=== PATIENT | male | born 1960 | race Caucasian/White ===

== ENCOUNTER 2020-04-03 16:34 | Emergency (ER) | payer OTHER, SELFPAY ==
[2020-04-03 16:47] VITALS: BP 163/90; PULSE 77; RESP 17; TEMP 36.9; O2SAT 98
[2020-04-03 17:19] LABS: Add Manual Diff / Slide Review NO; Basophils Absolute Auto 0 /uL (0-100); Basophils Percent Auto 0.5 % (0-2); Eosinophils Absolute Auto 200 /uL (0-450); Hematocrit 41.9 % (41-53); Hemoglobin 14.4 g/dL (13.5-17.5); Lymphocytes Absolute Auto 2900 /uL (1100-4500); Mean Corpuscular HGB Conc 34.2 % (30-36); Mean Corpuscular Hemoglobin 31.8 PG (26-34); Monocytes Absolute Auto 700 /uL (0-900); Monocytes Percent Auto 8.4 % (3-14); Neutrophils Absolute Auto 4400 /uL (1500-7000); Neutrophils Percent Auto 54.1 % (50-75); Platelet Count 253 X10^3/uL (150-400); Red Blood Cell Count 4.51 X10^6/uL (4.5-5.9); Red Cell Distribution Width 13.6 % (11.6-14.8); White Blood Cell Count 8.2 X10^3/uL (4.5-11.0)
[2020-04-03 17:30] LABS: Prothrombin Time 11.8 SECONDS (10.1-12.7)
[2020-04-03 17:33] LABS: PTT Partial Thromboplastin Tim 32 SECONDS (26.4-36.2)
[2020-04-03 17:35] LABS: Alanine Aminotransferase 24 IU/L (<50); Albumin 4.5 g/dL (3.5-5.0); Albumin Globulin Ratio 1.7 (1.0-2.8); Alkaline Phosphatase 41 U/L (38-126); Aspartate Aminotransferase 25 IU/L (17-59); Bilirubin Total 0.5 mg/dL (0.2-1.3); Blood Urea Nitrogen 17 mg/dL (9-20); Calcium 9.5 mg/dL (8.4-10.2); Carbon Dioxide 27 mmol/L (22-32); Chloride 107 mmol/L (98-107); Estimated Glomerular Filt Rate > 60.0 mL/min (>60); Globulin 2.7 g/dL (1.7-4.1); Glucose 112 mg/dL (70-100); HEMOLYSIS 50 (0-50); Lipase 193 U/L (23-300); Sodium 139 mmol/L (137-145); Total Protein 7.2 g/dL (6.3-8.2)
[2020-04-03] MEDS: MORPHINE 4 MG/ML INJ IV (18:24)
[2020-04-03 18:30] VITALS: BP 159/90; PULSE 68; RESP 17; O2SAT 97
--- NOTE | 2020-04-03 19:12 | ED.ABDPAIN ---
HPI - Abdominal Pain <ANNELISE Villalpando - Last Filed: 04/03/20 19:40> General Chief Complaint: Abdominal Pain Stated Complaint: states has a hernia and sent by his Dr. Time Seen by Provider: 04/03/20 17:01 Source: patient Mode of arrival: Ambulatory Limitations: no limitations History of Present Illness HPI narrative: The patient is a 59-year-old male nonsmoker with history of insomnia who presents with a chief complaint of an umbilical hernia. He was seen at the clinic today, for his hernia. He states his been out for several days and is very hard and painful. He states that this has been going on for years, but has never been this bad. He denies any fevers nausea vomiting or diarrhea. He denies any abdominal pain other than his hernia at this point time. He states that Dr Gil attempted to reduce his hernia, and was unable to. Last bowel movement was yesterday was soft. Related Data Home Medications Medication Instructions Recorded Confirmed loratadine [Claritin] 10 mg PO DAILY 04/03/20 04/03/20 Previous Rx's Medication Instructions Recorded Viagra 100 mg tablet 100 mg PO SEE INSTRUCTIONS #30 tab 11/13/19 NS zolpidem 10 mg tablet 10 mg PO HSP PRN #30 tab 11/13/19 Allergies Allergy/AdvReac Type Severity Reaction Status Date / Time tetracycline [TETRACYCLINE] Allergy Mild rash Verified 04/03/20 16:51 Review of Systems <ANNELISE Villalpando - Last Filed: 04/03/20 19:40> Review of Systems Narrative: GENERAL: Denies chills, fatigue, malaise, fever, sweats. HEENT: Denies sinus pain, ear pain, sore throat, difficulty swallowing, dizziness. RESPIRATORY: Denies dyspnea, cough, wheezing, hemoptysis, sputum. CARDIOVASCULAR: Denies chest pain, palpitations, orthopnea, edema, GASTROINTESTINAL: See HPI : Denies dysuria, frequency, incontinence, hematuria, urinary retention. MUSCULOSKELETAL: denies weakness, joint pain, or bony pain SKIN: Denies rash, skin lesions, or other NEUROLOGIC: Denies weakness, headache, numbness, change in speech, confusion, seizures, incoordination. PSYCHIATRIC: No concerning psychosocial issues. 12 point review of systems is negative except for those stated above Patient History <ANNELISE Villalpando - Last Filed: 04/03/20 19:40> Medical History (Updated 04/03/20 @ 19:14 by ANNELISE Villalpando) Erectile dysfunction (Acute) Insomnia (Acute) Social History Smoking Status: Never smoker Smoking Status: Never smoker alcohol intake frequency: 3 or more drinks per day Alcohol type: hard liquor Substance Use Type: does not use Exam <ANNELISE Villalpando - Last Filed: 04/03/20 19:40> Narrative Exam Narrative: GENERAL: This is a well-nourished, well-developed patient, in no acute distress HEAD: Atraumatic. Normocephalic. No temporal or scalp tenderness. EYES: Pupils equal round and reactive. Extraocular motions intact. No scleral icterus. No injection or drainage. ENT: Nose without bleeding, purulent drainage or septal hematoma. Throat without erythema, tonsillar hypertrophy or exudate. Uvula midline. Airway patent. NECK: Trachea midline. No JVD or lymphadenopathy. Supple, nontender, no meningeal signs. CARDIOVASCULAR: Regular rate and rhythm RESPIRATORY: Clear to auscultation. Breath sounds equal bilaterally. No wheezes, rales, or rhonchi. No cough. No increased respiratory effort. No accessory muscle use GASTROINTESTINAL: Abdomen soft, non-tender, active bowel sounds all 4 quadrants. Umbilical hernia is palpable and firm. EXTREMITIES: No clubbing, cyanosis, or edema. No joint tenderness, effusion, or edema noted. BACK: Nontender without deformity or crepitance. No flank tenderness. NEURO: AOx3. SKIN: No rash or erythema. Initial Vital Signs Initial Vital Signs: Vital Signs Temperature 98.4 F 04/03/20 16:47 Pulse Rate 77 04/03/20 16:47 Respiratory Rate 17 04/03/20 16:47 Blood Pressure 163/90 H 04/03/20 16:47 Pulse Oximetry 98 04/03/20 16:47 <Rubio Montoya DO - Last Filed: 04/07/20 18:05> Initial Vital Signs Initial Vital Signs: Vital Signs Temperature 98.4 F 04/03/20 16:47 Pulse Rate 77 04/03/20 16:47 Respiratory Rate 17 04/03/20 16:47 Blood Pressure 163/90 H 04/03/20 16:47 Pulse Oximetry 98 04/03/20 16:47 Scores <LILI Villalpando - Last Filed: 04/03/20 19:40> GCS [place] coma scale eye opening: Spontaneous Estefanía coma scale verbal response: Orientated Course <ANNELISE Villalpando - Last Filed: 04/03/20 19:40> Orders Ordered: Discontinued Medications Morphine Sulfate (Morphine) 4 mg IV NOW ONE Stop: 04/03/20 17:53 Last Admin: 04/03/20 18:24 Dose: 4 mg Documented by: PABLO Vital Signs Vital signs: Vital Signs - 8 hr 04/03/20 16:47 04/03/20 18:30 Temperature 98.4 F Pulse Rate 77 68 Respiratory Rate 17 17 Blood Pressure 163/90 H Blood Pressure [Right Arm] 159/90 H Pulse Oximetry 98 97 <Rubio Montoya DO - Last Filed: 04/07/20 18:05> Orders Ordered: Discontinued Medications Morphine Sulfate (Morphine) 4 mg IV NOW ONE Stop: 04/03/20 17:53 Last Admin: 04/03/20 18:24 Dose: 4 mg Documented by: PABLO Vital Signs Vital signs: Vital Signs - 8 hr 04/03/20 16:47 04/03/20 18:30 Temperature 98.4 F Pulse Rate 77 68 Respiratory Rate 17 17 Blood Pressure 163/90 H Blood Pressure [Right Arm] 159/90 H Pulse Oximetry 98 97 MDM - Abdominal Pain <LILI Villalpando - Last Filed: 04/03/20 19:40> Lab Data Result diagrams: 04/03/20 17:07 04/03/20 17:07 Labs: Lab Results 04/03/20 04/03/20 04/03/20 Range/Units 17:07 17:07 17:07 WBC 8.2 (4.5-11.0) X10^3/uL RBC 4.51 (4.5-5.9) X10^6/uL Hgb 14.4 (13.5-17.5) g/dL Hct 41.9 (41-53) % MCV 93.0 (80-100) fL MCH 31.8 (26-34) PG MCHC 34.2 (30-36) % RDW 13.6 (11.6-14.8) % Plt Count 253 (150-400) X10^3/uL Neut % (Auto) 54.1 (50-75) % Lymph % (Auto) 35.0 (25-40) % [place] % (Auto) 8.4 (3-14) % Eos % (Auto) 2.0 (2-4) % Baso % (Auto) 0.5 (0-2) % Neut # (Auto) 4400 (6470-6105) /uL Lymph # (Auto) 2900 (5852-8653) /uL [place] # (Auto) 700 (0-900) /uL Eos # (Auto) 200 (0-450) /uL Baso # (Auto) 0 (0-100) /uL PT 11.8 (10.1-12.7) SECONDS INR 1.0 (0.9-1.3) APTT 32 (26.4-36.2) SECONDS Sodium 139 (137-145) mmol/L Potassium 4.0 (3.4-5.1) mmol/L Chloride 107 (98-107) mmol/L Carbon Dioxide 27 (22-32) mmol/L BUN 17 (9-20) mg/dL Creatinine 0.81 (0.66-1.25) mg/dL Estimated GFR > 60.0 (>60) mL/min BUN/Creatinine Ratio 21.0 (6-22) Glucose 112 H (70-100) mg/dL Calcium 9.5 (8.4-10.2) mg/dL Total Bilirubin 0.5 (0.2-1.3) mg/dL AST 25 (17-59) IU/L ALT 24 (<50) IU/L Alkaline Phosphatase 41 (38-126) U/L Total Protein 7.2 (6.3-8.2) g/dL Albumin 4.5 (3.5-5.0) g/dL Globulin 2.7 (1.7-4.1) g/dL Albumin/Globulin Ratio 1.7 (1.0-2.8) Lipase 193 (23-300) U/L Point of care testing: Urine Dip Bedside Urine Glucose Negative Bedside Urine Bilirubin - Negative Bedside Urine Ketone - Negative Urine Specific [place] 1.020 Bedside Urine Occult Blood - Negative Bedside Urine pH 6.0 Bedside Urine Protein - Negative Bedside Urine Urobilinogen - Negative Bedside Urine Nitrite - Negative Bedside Urine Leukocytes - Negative Esterase [facility] Narrative Medical decision making narrative: The patient is a 59-year-old male who presents with a chief complaint of a possible incarcerated hernia. His overall exam other than his hernia is overall benign. He is afebrile, nontoxic appearing. Basic labs came back with no acute findings. After single dose of morphine, gentle pressure was placed on the hernia with the patient will laying on his back and Trendelenburg position. The patient was given 4 mg of morphine and the hernia was easily reduced with gentle constant pressure. Patient tolerated very well, states that it was reduced very quickly. Patient appeared well and nontoxic after, requested to go home. I discussed not drinking alcohol after morphine, the importance of following up with primary care provider as well as the fact that he might need to have this surgically repaired. Encouraged monitoring for painful hernia, hernia that is ?stuck out etcetera patient have no questions or concerns upon discharge and state understanding of return precautions as well as follow-up care. <Rubio Montoya, DO - Last Filed: 04/07/20 18:05> Lab Data Labs: Lab Results 04/03/20 04/03/20 04/03/20 Range/Units 17:07 17:07 17:07 WBC 8.2 (4.5-11.0) X10^3/uL RBC 4.51 (4.5-5.9) X10^6/uL Hgb 14.4 (13.5-17.5) g/dL Hct 41.9 (41-53) % MCV 93.0 (80-100) fL MCH 31.8 (26-34) PG MCHC 34.2 (30-36) % RDW 13.6 (11.6-14.8) % Plt Count 253 (150-400) X10^3/uL Neut % (Auto) 54.1 (50-75) % Lymph % (Auto) 35.0 (25-40) % [place] % (Auto) 8.4 (3-14) % Eos % (Auto) 2.0 (2-4) % Baso % (Auto) 0.5 (0-2) % Neut # (Auto) 4400 (0182-3501) /uL Lymph # (Auto) 2900 (6965-1234) /uL [place] # (Auto) 700 (0-900) /uL Eos # (Auto) 200 (0-450) /uL Baso # (Auto) 0 (0-100) /uL PT 11.8 (10.1-12.7) SECONDS INR 1.0 (0.9-1.3) APTT 32 (26.4-36.2) SECONDS Sodium 139 (137-145) mmol/L Potassium 4.0 (3.4-5.1) mmol/L Chloride 107 (98-107) mmol/L Carbon Dioxide 27 (22-32) mmol/L BUN 17 (9-20) mg/dL Creatinine 0.81 (0.66-1.25) mg/dL Estimated GFR > 60.0 (>60) mL/min BUN/Creatinine Ratio 21.0 (6-22) Glucose 112 H (70-100) mg/dL Calcium 9.5 (8.4-10.2) mg/dL Total Bilirubin 0.5 (0.2-1.3) mg/dL AST 25 (17-59) IU/L ALT 24 (<50) IU/L Alkaline Phosphatase 41 (38-126) U/L Total Protein 7.2 (6.3-8.2) g/dL Albumin 4.5 (3.5-5.0) g/dL Globulin 2.7 (1.7-4.1) g/dL Albumin/Globulin Ratio 1.7 (1.0-2.8) Lipase 193 (23-300) U/L Point of care testing: Urine Dip Bedside Urine Glucose Negative Bedside Urine Bilirubin - Negative Bedside Urine Ketone - Negative Urine Specific [place] 1.020 Bedside Urine Occult Blood - Negative Bedside Urine pH 6.0 Bedside Urine Protein - Negative Bedside Urine Urobilinogen - Negative Bedside Urine Nitrite - Negative Bedside Urine Leukocytes - Negative Esterase Discharge Plan Departure Patient Disposition: Home Clinical Impression: Hernia, umbilical Qualifiers: Obstruction and gangrene presence: without obstruction or gangrene Qualified Code(s): K42.9 - Umbilical hernia without obstruction or gangrene Discharge Date/Time: 04/03/20 19:45 Instructions: Hernias: Causes and Treatment Options, Abdominal Hernia Activity Restrictions/Additional Instructions: Thank you for trusting us with your care today. Today we were able to reduce your hernia. Please come back to the emergency department for any acute concerns such as abdominal pain with fever, inability keep down fluids, concerned about incarceration or strangulation of hernia As discussed, please follow-up with primary care provider as well as [facility] Prescriptions: No Action sildenafil [Viagra] 100 mg tablet 100 mg PO SEE INSTRUCTIONS Qty: 30 RF: 4 zolpidem 10 mg tablet 10 mg PO HSP PRN (Reason: sleep) Qty: 30 RF: 0 loratadine [Claritin] 10 mg Tablet 10 mg PO DAILY RF: 0 Referrals: [facility] [Provider Group] Ofe Colorado MD [Primary Care Provider] - <Rubio Montoya DO - Last Filed: 04/07/20 18:05> [facility] Dr Montoya Co-Sign Statement: I was available for consultation during this patient's emergency department visit. This chart is signed by myself for administrative purposes only. I did not have direct contact with this patient during this visit. They were seen independently by the APC.
[2020-04-03 19:35] VITALS: BP 157/89; PULSE 69; RESP 18; O2SAT 99
== END 2020-04-03 19:45 | disposition home or self-care (01) ==
PROVIDERS: Emergency Medicine; Emergency Provider Nurse Practitioner Family; PCP Family Medicine
DX: K42.9 Umbilical hernia without obstruction or gangrene (principal)
CPT/HCPCS: 36415; 80053; 81003; 83690; 85025; 85610; 85730; 96374; 99284; J2270

== ENCOUNTER 2021-10-31 13:01 | Emergency (ER) | payer OTHER, SELFPAY ==
[2021-10-31 13:10] VITALS: BP 155/90; PULSE 59; O2SAT 98
--- NOTE | 2021-10-31 13:36 | ED.BACK ---
HPI - Back Pain/Injury <Diony Aguiar PA-C - Last Filed: 10/31/21 17:03> General Chief Complaint: Back Pain/Injury Stated Complaint: Low back pain Time Seen by Provider: 10/31/21 13:11 Source: patient and EMS History of Present Illness HPI Narrative: Patient is a 61-year-old male presenting to the emergency department today via EMS for evaluation of low back pain. Patient states that yesterday he was attempting to move a heavy log when he felt an immediate pain in his lower back. He states his pain is a 7/10 in intensity and is gradually getting worse. He states that he has not taken any medications today for his pain, however he notes that yesterday Tylenol and codeine did not significantly improve his condition. Of note, patient denies any history of low back pain or injuries. Patient denies fever, chills, chest pain, cough, shortness of breath, nausea, vomiting, diarrhea, dysuria, hematuria, numbness and tingling in the bilateral lower extremities, urinary incontinence, fecal incontinence, pain in the bilateral legs, or any other concerning symptoms. No further concerns reports at this time. Related Data Home Medications Medication Instructions Recorded Confirmed loratadine 10 mg tablet (Claritin) 10 mg PO DAILY 04/03/20 04/03/20 Previous Rx's Medication Instructions Recorded Viagra 100 mg tablet (sildenafil) 100 mg PO SEE INSTRUCTIONS #30 tab 11/13/19 NS zolpidem 10 mg tablet 10 mg PO HSP PRN #30 tab 07/21/21 baclofen 10 mg tablet 10 mg PO BID #20 tab 10/31/21 Allergies Allergy/AdvReac Type Severity Reaction Status Date / Time tetracycline [TETRACYCLINE] Allergy Mild rash Verified 10/31/21 13:05 erythromycin base Allergy Unknown Verified 10/31/21 13:05 Review of Systems <Diony Aguiar PA-C - Last Filed: 10/31/21 17:03> Constitutional Constitutional: Denies chills, Denies fatigue, Denies fever(s), Denies frequent falls, Denies lethargy and Denies weakness Eyes Eyes: Denies loss of vision ENT Ears, Nose, Mouth, and Throat: Denies dizziness and Denies neck pain Cardiovascular Cardiovascular: Denies chest pain, Denies irregular heart rhythm, Denies lightheadedness, Denies palpitations, Denies dyspnea, Denies dyspnea on exertion and Denies orthopnea Respiratory Respiratory: Denies cough, Denies dyspnea, Denies dyspnea on exertion and Denies wheezing Gastrointestinal Gastrointestinal: Denies abdominal pain, Denies change in bowel habits, Denies diarrhea, Denies nausea and Denies vomiting Genitourinary Genitourinary: Denies hematuria, Denies flank pain, Denies urinary incontinence and Denies urinary urgency Musculoskeletal Musculoskeletal: Reports back pain, Denies muscle weakness, Denies neck pain, Denies numbness and Denies tingling Integumentary/Breasts Skin/Breast: Denies pruritus, Denies erythema, Denies rash and Denies wounds Neurologic Neurologic: Denies behavioral changes, Denies confusion, Denies dizziness, Denies frequent falls, Denies loss of vision, Denies numbness, Denies tingling and Denies weakness Psychiatric Psychiatric: Denies behavioral changes and Denies confusion Endocrine Endocrine: Denies fatigue and Denies palpitations Allergic/Immunologic Allergic/Immunologic: Denies wheezing Patient History <Diony Aguiar PA-C - Last Filed: 10/31/21 17:03> Medical History Erectile dysfunction Insomnia Low back strain Social History Smoking Status: Never smoker Smoking Status: Never smoker alcohol intake frequency: 0-2 drinks per day Alcohol type: hard liquor Substance Use Type: does not use Exam <Diony Aguiar PA-C - Last Filed: 10/31/21 17:03> Narrative Exam Narrative: GENERAL: 61 year old patient appears stated age. Well-developed patient, in mild distress. HEAD: Atraumatic. Normocephalic. EYES: Pupils equal round and reactive. Extraocular motions intact. No scleral icterus. No injection or drainage. ENT: Nose without bleeding, purulent drainage. Throat without erythema, tonsillar hypertrophy or exudate. Airway patent. NECK: Trachea midline. Non tender CARDIOVASCULAR: Regular rate and rhythm without murmurs, gallops, or rubs. RESPIRATORY: Clear to auscultation. Breath sounds equal bilaterally. No wheezes, rales, or rhonchi. GASTROINTESTINAL: Abdomen soft, non-tender, nondistended. EXTREMITIES: No edema or joint tenderness. BACK: No deformity or crepitance. No flank tenderness. Mild tenderness to palpation noted over the PSIS bilaterally in the bilateral paraspinal muscles over the area of L4-L5. NEURO: AOx3. SKIN: No rash or erythema of visible areas Initial Vital Signs Initial Vital Signs: Vital Signs Pulse Rate 59 L 10/31/21 13:10 Blood Pressure 155/90 H 10/31/21 13:10 Pulse Oximetry 98 10/31/21 13:10 <Rubio Montoya DO - Last Filed: 10/31/21 17:09> Initial Vital Signs Initial Vital Signs: Vital Signs Pulse Rate 59 L 10/31/21 13:10 Blood Pressure 155/90 H 10/31/21 13:10 Pulse Oximetry 98 10/31/21 13:10 Course <Diony Aguiar PA-C - Last Filed: 10/31/21 17:03> Course Course Narrative: To consider lumbar day ago versus low back pain versus musculoskeletal back pain versus herniated disc versus bulging disc versus cauda equinus syndrome verses radiculopathy. Pain was not significantly improved after intramuscular Toradol a and p.o. back within. IV hydromorphone was administered and patient states he is feeling significantly better. Orders Ordered: Discontinued Medications Baclofen (Baclofen 10 Mg Tablet) 10 mg PO NOW ONE Stop: 10/31/21 13:24 Last Admin: 10/31/21 14:03 Dose: 10 mg Documented by: NICOLA Hydromorphone HCl (Hydromorphone 0.5 Mg Inj) 0.5 mg IV NOW ONE Stop: 10/31/21 15:03 Last Admin: 10/31/21 15:17 Dose: 0.5 mg Documented by: SAMW Hydromorphone HCl (Hydromorphone 0.5 Mg Inj) 0.5 mg IV NOW ONE Stop: 10/31/21 16:03 Last Admin: 10/31/21 16:19 Dose: 0.5 mg Documented by: SLY Ketorolac Tromethamine (Ketorolac 30 Mg/Ml Vial) 30 mg IM NOW ONE Stop: 10/31/21 13:24 Last Admin: 10/31/21 14:02 Dose: 30 mg Documented by: NICOLA Vital Signs Vital signs: Vital Signs - 8 hr 10/31/21 13:10 10/31/21 15:16 10/31/21 15:30 Pulse Rate 59 L 62 61 Respiratory Rate 18 Blood Pressure 155/90 H 121/81 120/77 Pulse Oximetry 98 97 93 10/31/21 16:20 10/31/21 16:30 10/31/21 16:49 Pulse Rate 62 70 70 Respiratory Rate 16 Blood Pressure 128/79 122/82 Pulse Oximetry 98 94 94 <Rubio Montoya DO - Last Filed: 10/31/21 17:09> Orders Ordered: Discontinued Medications Baclofen (Baclofen 10 Mg Tablet) 10 mg PO NOW ONE Stop: 10/31/21 13:24 Last Admin: 10/31/21 14:03 Dose: 10 mg Documented by: NICOLA Hydromorphone HCl (Hydromorphone 0.5 Mg Inj) 0.5 mg IV NOW ONE Stop: 10/31/21 15:03 Last Admin: 10/31/21 15:17 Dose: 0.5 mg Documented by: GIL Hydromorphone HCl (Hydromorphone 0.5 Mg Inj) 0.5 mg IV NOW ONE Stop: 10/31/21 16:03 Last Admin: 10/31/21 16:19 Dose: 0.5 mg Documented by: SLY Ketorolac Tromethamine (Ketorolac 30 Mg/Ml Vial) 30 mg IM NOW ONE Stop: 10/31/21 13:24 Last Admin: 10/31/21 14:02 Dose: 30 mg Documented by: NICOLA Vital Signs Vital signs: Vital Signs - 8 hr 10/31/21 13:10 10/31/21 15:16 10/31/21 15:30 Pulse Rate 59 L 62 61 Respiratory Rate 18 Blood Pressure 155/90 H 121/81 120/77 Pulse Oximetry 98 97 93 10/31/21 16:20 10/31/21 16:30 10/31/21 16:49 Pulse Rate 62 70 70 Respiratory Rate 16 Blood Pressure 128/79 122/82 Pulse Oximetry 98 94 94 MDM - Back Pain/Injury <Diony Aguiar PA-C - Last Filed: 10/31/21 17:03> MDM Narrative Medical decision making narrative: To consider lumbar day ago versus low back pain versus musculoskeletal back pain versus herniated disc versus bulging disc versus cauda equinus syndrome verses radiculopathy. Overall physical examination and history are reassuring. Informed the patient that the history of his injury seems consistent with a muscle strain. I instructed the patient to take muscle relaxers twice daily to help alleviate his pain, and I instructed him to ambulate and be active as tolerated. Patient expresses understanding and agrees to plan. Additionally I recommended the patient follow-up with primary care provider within the next 2-3 days. Strict return precautions were discussed with the patient prior to discharge. At this time patient is stable for discharge. Discharge Plan Departure Patient Disposition: Home Clinical Impression: Low back strain Instructions: DI for Back Spasm Activity Restrictions/Additional Instructions: *You have been diagnosed with low back strain *What to do: *Please continue to take your regular medications as directed. [X] New medication prescriptions sent to your pharmacy: [facility] - Baclofen [ ] New medication written as a paper prescription [ ] No new medications given *Please follow up with your primary care provider in 2-3 days, call for an appointment. Let them know you were seen in the Emergency Department and that we ask that you be seen in follow up. We will electronically transmit a record of today's note if your PCP is in our system *If you do not have a primary care provider please contact the [facility] Resource line at [phone]. They will ask some questions about your medical history and help get you set up with a doctor in the community. *Return to Emergency Department if you should have any new, worsening or concerning symptoms, such as fever greater than 101 F, shaking chills, worsening pain, persistent vomiting or other bothersome symptoms. Prescriptions: New baclofen 10 mg tablet 10 mg PO BID Qty: 20 0RF No Action sildenafil [Viagra] 100 mg tablet 100 mg PO SEE INSTRUCTIONS Qty: 30 4RF zolpidem 10 mg tablet 10 mg PO HSP PRN (Reason: sleep) Qty: 30 0RF loratadine [Claritin] 10 mg Tablet 10 mg PO DAILY 0RF Referrals: Ofe Colorado MD [Primary Care Provider] - <Rubio Montoya DO - Last Filed: 10/31/21 17:09> Cosign ED Attending Cosignature Attestation: Dr Montoya Co-Sign Statement: I was available for consultation during this patient's emergency department visit. This chart is signed by myself for administrative purposes only. I did not have direct contact with this patient during this visit. They were seen independently by the APC.
[2021-10-31] MEDS: KETOROLAC 30 MG/ML VIAL IM (14:02)
[2021-10-31] MEDS: BACLOFEN 10 MG TABLET PO (14:03)
[2021-10-31 15:16] VITALS: BP 121/81; PULSE 62; RESP 18; O2SAT 97
[2021-10-31] MEDS: HYDROMORPHONE 0.5 MG INJ IV ×2 (15:17→16:19)
[2021-10-31 15:30] VITALS: BP 120/77; PULSE 61; O2SAT 93
--- NOTE | 2021-10-31 16:00 | PC.NURSE ---
Assisted pt to sit up from laying position, pt required assistance of bed function to sit up and RN. Pt reports increased pain when sitting up and concern about going home, Stefania CORNELL notified.
[2021-10-31 16:20] VITALS: BP 128/79; PULSE 62; O2SAT 98
[2021-10-31 16:30] VITALS: PULSE 70; O2SAT 94
[2021-10-31 16:49] VITALS: BP 122/82; PULSE 70; RESP 16; O2SAT 94
== END 2021-10-31 16:54 | disposition home or self-care (01) ==
PROVIDERS: Emergency Provider Physician Assistant; PCP Family Medicine
DX: S39.012A Strain of muscle, fascia and tendon of lower back, initial encounter (principal); X50.0XXA Overexertion from strenuous movement or load, initial encounter
CPT/HCPCS: 96372; 96374; 96375; 99284; J1170; J1885

== ENCOUNTER → 2021-11-13 13:11 | Outpatient (CLI) | payer OTHER, SELFPAY ==
--- NOTE | 2021-11-13 13:13 | DI.RAD.S_ITS ---
PROCEDURE: XR LUMBAR SPINE MIN 4V INDICATIONS: low back pain TECHNIQUE: 5 views of the lumbar spine were acquired, including bilateral oblique views. COMPARISON: None. FINDINGS: Bones: 5 nonrib-bearing vertebrae are present. There is normal bony alignment. No vertebral body compression fractures. No suspicious bony lesions. Mild multilevel disc space narrowing and endplate osteophyte formation. Facet hypertrophy throughout the mid and lower lumbar spine. Soft tissues: Overlying bowel gas pattern is normal. No suspicious soft tissue calcifications. IMPRESSION: Multilevel degenerative disc and facet disease. No acute fracture. No osseous lesion. If symptoms and/or clinical suspicion for pathology persist, further assessment with repeat, or advanced imaging (e.g., CT, MRI, or bone scan) may be helpful for further assessment. Dictated by: Chula Mercado M.D. on 11/13/2021 at 14:54 Approved by: Chula Mercado M.D. on 11/13/2021 at 16:29
== END ==
PROVIDERS: PCP Family Medicine; Referring Provider Family Medicine; Visit Provider Family Medicine
DX: M51.36 Other intervertebral disc degeneration, lumbar region (principal); S39.012D Strain of muscle, fascia and tendon of lower back, subsequent encounter
CPT/HCPCS: 72110

== ENCOUNTER 2023-06-15 15:52 | Emergency (ER) | payer OTHER, SELFPAY ==
[2023-06-15 16:15] VITALS: BP 137/87; PULSE 84; RESP 16; TEMP 37.7; O2SAT 94; BMI 30.9
--- NOTE | 2023-06-15 16:36 | ED.GENADULT ---
HPI - General Adult General Chief complaint: Abdominal Pain Stated complaint: lower abd pain, sent by MD Time Seen by Provider: 06/15/23 16:31 Source: patient Mode of arrival: Ambulatory History of Present Illness HPI narrative: 63-year-old male who is here for evaluation of approximately 4 days of what initially started as epigastric abdominal pain in his now right lower quadrant abdominal pain. He states that it does get somewhat better when he urinates. He is no testicular pain. Some nausea but no vomiting. No fevers. Has had an umbilical hernia repair. No diarrhea. No change in pain with bowel movements. Related Data Home Medications Medication Instructions Recorded Confirmed loratadine 10 mg tablet (Claritin) 10 mg PO DAILY 04/03/20 04/03/20 Previous Rx's Medication Instructions Recorded Viagra 100 mg tablet (sildenafil) 100 mg PO SEE INSTRUCTIONS #30 tabs 11/13/19 naproxen 500 mg tablet 500 mg PO BID PRN pain #20 tabs 11/02/21 meloxicam 15 mg tablet 15 mg PO DAILY #30 tabs 11/04/21 oxycodone 5 mg tablet 5 mg PO TID PRN pain #14 tabs 11/04/21 methylprednisolone 4 mg tablets in 4 mg PO DAILY #21 ea 11/09/21 a dose pack (Medrol (Fred)) cyclobenzaprine 5 mg tablet See Rx Instructions PO TID PRN 11/13/21 muscle spasm #60 tabs fluconazole 200 mg tablet 200 mg PO DAILY #4 tabs 06/03/22 (Diflucan) zolpidem 10 mg tablet 10 mg PO HSP PRN sleep #30 tabs 04/01/23 Allergies Allergy/AdvReac Type Severity Reaction Status Date / Time tetracycline [TETRACYCLINE] Allergy Mild rash Verified 10/31/21 13:05 erythromycin base Allergy Unknown Verified 10/31/21 13:05 Review of Systems Gastrointestinal Gastrointestinal: Reports system reviewed and no additional complaints, except as documented Genitourinary Genitourinary: Reports system reviewed and no additional complaints, except as documented Integumentary/Breasts Skin/Breast: Reports system reviewed and no additional complaints, except as documented Hematologic/Lymphatic On Anticoagulants: No Patient History Medical History Erectile dysfunction Insomnia Low back strain Social History Smoking Status: Never smoker Smoking Status: Never smoker alcohol intake frequency: 0-2 drinks per day Alcohol type: hard liquor Substance Use Type: does not use Exam Initial Vital Signs Initial Vital Signs: Vital Signs Temperature 99.9 F H 06/15/23 16:15 Pulse Rate 84 06/15/23 16:15 Respiratory Rate 16 06/15/23 16:15 Blood Pressure 137/87 06/15/23 16:15 Pulse Oximetry 94 06/15/23 16:15 Oxygen Delivery Method Room Air 06/15/23 16:15 Const General: cooperative, comfortable and No ill appearing [facility] Head: normal to inspection Resp Effort & Inspection: normal respiratory effort Auscultation: clear to auscultation bilaterally Cardio Rate: regular rate GI Inspection: normal to inspection and non-distended Palpation: soft and tender (Right lower quadrant) Neuro General: patient alert and patient awake Extrem General: normal to inspection and capillary refill normal Course Orders Ordered: ED Orders 06/15/23 16:33 Complete Blood Count AUTO DIFF Stat Comprehensive Metabolic Panel Stat Lipase Stat 06/15/23 16:42 CT abdomen pelvis w con Stat Ondansetron HCl (Ondansetron 4 Mg Odt) 4 mg PO NOW PRN PRN Reason: Nausea And Vomiting Ondansetron HCl (Ondansetron 4 Mg/2 Ml Inj) 4 mg IV NOW PRN PRN Reason: Nausea And Vomiting Vital Signs Vital signs: Vital Signs - 8 hr 06/15/23 16:15 Temperature 99.9 F H Pulse Rate 84 Respiratory Rate 16 Blood Pressure 137/87 Pulse Oximetry 94 Oxygen Delivery Method Room Air Medical Decision Making Lab Data 06/15/23 16:33 06/15/23 16:33 Labs: Lab Results 06/15/23 06/15/23 Range/Units 16:33 16:33 WBC 13.7 H (4.5-11.0) X10^3/uL RBC 4.63 (4.5-5.9) X10^6/uL Hgb 14.5 (13.5-17.5) g/dL Hct 42.3 (41-53) % MCV 91.4 (80-100) fL MCH 31.4 (26-34) PG MCHC 34.4 (30-36) % RDW 13.6 (11.6-14.8) % Plt Count 267 (150-400) X10^3/uL Neut % (Auto) 67.5 (50-75) % Lymph % (Auto) 20.1 L (25-40) % [place] % (Auto) 10.8 (3-14) % Eos % (Auto) 1.3 L (2-4) % Baso % (Auto) 0.3 (0-2) % Neut # (Auto) 9300 H (3455-7429) /uL Lymph # (Auto) 2800 (3339-2067) /uL [place] # (Auto) 1500 H (0-900) /uL Eos # (Auto) 200 (0-450) /uL Baso # (Auto) 0 (0-100) /uL Sodium 138 (137-145) mmol/L Potassium 4.0 (3.4-5.1) mmol/L Chloride 103 (98-107) mmol/L Carbon Dioxide 24 (22-32) mmol/L BUN 13 (9-20) mg/dL Creatinine 0.75 (0.66-1.25) mg/dL Estimated GFR > 60 (>60) mL/min BUN/Creatinine Ratio 17.3 (6-22) Glucose 103 (80-110) mg/dL Calcium 9.2 (8.4-10.2) mg/dL Total Bilirubin 0.7 (0.2-1.3) mg/dL AST 21 (17-59) IU/L ALT 26 (<50) IU/L Alkaline Phosphatase 44 (38-126) U/L Total Protein 7.5 (6.3-8.2) g/dL Albumin 4.5 (3.5-5.0) g/dL Globulin 3.0 (1.7-4.1) g/dL Albumin/Globulin Ratio 1.5 (1.0-2.8) Lipase 88 (23-300) U/L Urine Dip Bedside Urine Glucose Negative Bedside Urine Bilirubin - Negative Bedside Urine Ketone - Negative Urine Specific Bath 1.010 Bedside Urine Occult Blood - Negative Bedside Urine pH 6.0 Bedside Urine Protein - Negative Bedside Urine Urobilinogen - Negative Bedside Urine Nitrite - Negative Bedside Urine Leukocytes - Negative Esterase Point of care testing: Urine Dip Bedside Urine Glucose Negative Bedside Urine Bilirubin - Negative Bedside Urine Ketone - Negative Urine Specific Bath 1.010 Bedside Urine Occult Blood - Negative Bedside Urine pH 6.0 Bedside Urine Protein - Negative Bedside Urine Urobilinogen - Negative Bedside Urine Nitrite - Negative Bedside Urine Leukocytes - Negative Esterase MDM Narrative Medical decision making narrative: Nausea no vomiting. Does have leukocytosis. Has periumbilical and right lower quadrant abdominal pain. He is having some urinary symptoms however urinalysis is negative. He is afebrile. CT scan of the abdomen and pelvis ordered. Care turned over to Dr. Rodrigues to follow-up on CT scan and disposition. Discharge Plan Departure Prescriptions: No Action sildenafil [Viagra] 100 mg tablet 100 mg PO SEE INSTRUCTIONS Qty: 30 4RF meloxicam 15 mg tablet 15 mg PO DAILY Qty: 30 0RF oxycodone 5 mg tablet 5 mg PO TID PRN (Reason: pain) Qty: 14 0RF naproxen 500 mg tablet 500 mg PO BID PRN (Reason: pain) Qty: 20 0RF methylprednisolone [Medrol (Fred)] 4 mg tablets,dose pack 4 mg PO DAILY Qty: 21 0RF Rx Instructions: take one tablet daily by mouth according to package directions cyclobenzaprine 5 mg tablet See Rx Instructions PO TID PRN (Reason: muscle spasm) Qty: 60 0RF Rx Instructions: 1 to 2 tabs three times a day as needed for spasms fluconazole [Diflucan] 200 mg tablet 200 mg PO DAILY Qty: 4 0RF Rx Instructions: Take one tab weekly for 4 weeks zolpidem 10 mg tablet 10 mg PO HSP PRN (Reason: sleep) Qty: 30 0RF loratadine [Claritin] 10 mg Tablet 10 mg PO DAILY Referrals: Ofe [place] MD [Primary Care Provider] -
--- NOTE | 2023-06-15 16:42 | DI.CT.S_ITS ---
PROCEDURE: CT ABDOMEN PELVIS W CON INDICATIONS: Suprapubic and right lower quadrant abdominal pain TECHNIQUE: After the administration of intravenous contrast, axial sections acquired from the lung bases to the pubic symphysis. Coronal and sagittal reformats were performed. For radiation dose reduction, the following was used: automated exposure control, adjustment of mA and/or kV according to patient size. COMPARISON: None. FINDINGS: Image quality: Excellent. Lung bases: Unremarkable. Heart: No significant findings. ABDOMEN: Liver: Liver is mildly hypoattenuating, suspicious for fatty infiltration. Gallbladder: Unremarkable. Biliary ducts: Unremarkable. Pancreas: Unremarkable. Spleen: Unremarkable. Adrenal Glands: Unremarkable. Kidneys and Ureters: Benign-appearing left renal cyst. No hydronephrosis or nephrolithiasis. Stomach and Bowel: Multiple diverticula are seen in the colon. There is bowel wall thickening and inflammatory fat stranding surrounding a diverticulum at the sigmoid colon. No pneumoperitoneum. No focal fluid collection. No signs of small bowel obstruction. The appendix appears normal. Stomach is unremarkable. Peritoneum: No abnormal intraperitoneal fluid. No free air. Ventral Wall: No hernias. Abdominal Nodes: No retroperitoneal or mesenteric adenopathy by size criteria. Vessels: Aorta and inferior vena cava are normal in size. PELVIS: Pelvic Organs: Unremarkable. Bladder: Unremarkable. Pelvic Nodes: No enlarged lymph nodes. Miscellaneous: No hernias are seen. Bones: Unremarkable. IMPRESSION: Acute uncomplicated sigmoid diverticulitis. Consider follow-up imaging or endoscopy after symptoms resolve to exclude an underlying mass. Approved by: Renard Gonsalez M.D. on 06/15/2023 at 18:08
[2023-06-15 16:48] LABS: Add Manual Diff / Slide Review NO; Basophils Absolute Auto 0 /uL (0-100); Basophils Percent Auto 0.3 % (0-2); Eosinophils Absolute Auto 200 /uL (0-450); Eosinophils Percent Auto 1.3 % (2-4); Hematocrit 42.3 % (41-53); Hemoglobin 14.5 g/dL (13.5-17.5); Lymphocytes Absolute Auto 2800 /uL (1100-4500); Lymphocytes Percent Auto 20.1 % (25-40); Mean Corpuscular HGB Conc 34.4 % (30-36); Mean Corpuscular Hemoglobin 31.4 PG (26-34); Mean Corpuscular Volume 91.4 fL (80-100); Monocytes Absolute Auto 1500 /uL (0-900); Monocytes Percent Auto 10.8 % (3-14); Neutrophils Absolute Auto 9300 /uL (1500-7000); Neutrophils Percent Auto 67.5 % (50-75); Platelet Count 267 X10^3/uL (150-400); Red Blood Cell Count 4.63 X10^6/uL (4.5-5.9); Red Cell Distribution Width 13.6 % (11.6-14.8); White Blood Cell Count 13.7 X10^3/uL (4.5-11.0)
[2023-06-15 16:54] LABS: Alanine Aminotransferase 26 IU/L (<50); Albumin 4.5 g/dL (3.5-5.0); Albumin Globulin Ratio 1.5 (1.0-2.8); Alkaline Phosphatase 44 U/L (38-126); Aspartate Aminotransferase 21 IU/L (17-59); BUN Creatinine Ratio 17.3 (6-22); Bilirubin Total 0.7 mg/dL (0.2-1.3); Blood Urea Nitrogen 13 mg/dL (9-20); Calcium 9.2 mg/dL (8.4-10.2); Carbon Dioxide 24 mmol/L (22-32); Chloride 103 mmol/L (98-107); Estimated Glomerular Filt Rate > 60 mL/min (>60); Glucose 103 mg/dL (80-110); HEMOLYSIS 26 (0-50); Lipase 88 U/L (23-300); Sodium 138 mmol/L (137-145); Total Protein 7.5 g/dL (6.3-8.2)
[2023-06-15 18:34] VITALS: BP 130/79; PULSE 78; RESP 16; TEMP 37.2; O2SAT 97
== END 2023-06-15 18:35 | disposition home or self-care (01) ==
PROVIDERS: Emergency Provider Emergency Medicine; PCP Family Medicine; Referring Provider Family Medicine
DX: K57.32 Diverticulitis of large intestine without perforation or abscess without bleeding (principal)
CPT/HCPCS: 36415; 74177; 80053; 81003; 83690; 85025; 99284; Q9967

== ENCOUNTER → 2024-07-09 13:56 | Outpatient (CLI) | payer OTHER, SELFPAY ==
--- NOTE | 2024-07-09 13:57 | DI.RAD.S_ITS ---
PROCEDURE: XR FOOT RT MIN 3V INDICATIONS: pain TECHNIQUE: 3 views of the foot were acquired. COMPARISON: None. FINDINGS: Bones small exostosis projects from the medial cortex of the distal 2nd metatarsal. Remote partially unified avulsion fracture of the dorsal cortex of the talar neck noted. Joints: Severe degeneration of the 1st and 2nd MTT joints appreciated with mild degeneration in the 3rd MTT and all interphalangeal joints. Hammertoe deformities present in the 2nd through 5th interphalangeal joints and pes planus Soft tissues: No soft tissue abnormality. IMPRESSION: Chronic findings-as described. Dictated by: Imtiaz Pierre M.D. on 07/10/2024 at 8:24 Approved by: Imtiaz Pierre M.D. on 07/10/2024 at 8:26
--- NOTE | 2024-07-09 13:57 | DI.RAD.S_ITS ---
PROCEDURE: XR HIP W PEL IF DONE RT 2V INDICATIONS: pain TECHNIQUE: 2 views of the hip were acquired. COMPARISON: None. 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 SI and hip joints: Mild degeneration both SI and hip joints noted. Moderate L4-5 L5-S1 degenerative disc disease appreciated. Soft tissues: No soft tissue swelling, calcification or mass. IMPRESSION: Mild degeneration both SI and hip joints. CAM configuration right femoral head neck junction Dictated by: Imtiaz Pierre M.D. on 07/10/2024 at 8:23 Approved by: Imtiaz Pierre M.D. on 07/10/2024 at 8:24
== END ==
PROVIDERS: PCP Family Medicine; Referring Provider Family Medicine; Visit Provider Family Medicine
DX: M16.0 Bilateral primary osteoarthritis of hip (principal); M47.818 Spondylosis without myelopathy or radiculopathy, sacral and sacrococcygeal region; M51.36 Other intervertebral disc degeneration, lumbar region; M51.37 Other intervertebral disc degeneration, lumbosacral region; M19.071 Primary osteoarthritis, right ankle and foot; M20.41 Other hammer toe(s) (acquired), right foot; M21.41 Flat foot [pes planus] (acquired), right foot; R52 Pain, unspecified
CPT/HCPCS: 73502; 73630

== ENCOUNTER → 2024-07-30 09:50 | Outpatient (CLI) | payer OTHER, SELFPAY ==
--- NOTE | 2024-07-30 | DI.CT.S_ITS ---
PROCEDURE: CT LE RT WO CON INDICATIONS: RIGHT FOOT PAIN TECHNIQUE: Noncontrast 1-1.5 mm axial sections acquired from above the tibiotalar joint to the bottom of the calcaneus, with coronal and sagittal reformats. COMPARISON: [facility], CR, XR FOOT RT MIN 3V, 07/09/2024, 14:04. [facility], CR, XR FOOT 3 VIEWS WEIGHT BEARING RIGHT, 07/20/2024, 9:17. FINDINGS: Image quality: Excellent. Bones: Osteoarthritic changes are noted throughout right foot most notably involving 1st through 3rd TMT joints with near complete loss of joint space, extensive subchondral sclerosis and subcortical cystic changes as well as prominent dorsal marginal osteophyte formation. No acute fracture or dislocation is seen. No suspicious intraosseous lesion. No definite osteochondral injuries of talar dome. Soft tissues: There is soft tissue swelling over dorsal aspect of midfoot at the level of 1st through 3rd TMT joints. No discrete soft tissue mass or drainable fluid collection. No abnormal soft tissue calcifications. No gross full-thickness tendon rupture. IMPRESSION: 1. 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 2. No acute fracture or dislocation. No suspicious bony lesions. 3. Mild soft tissue swelling over dorsal aspect of midfoot. No soft tissue mass or drainable fluid collection. No abnormal soft tissue calcifications. No gross full-thickness tendon rupture. Dictated by: Milton Urrutia M.D. on 07/31/2024 at 11:50 Approved by: Milton Urrutia M.D. on 07/31/2024 at 11:52
== END ==
PROVIDERS: PCP Family Medicine; Referring Provider Orthopaedic Surgery Foot and Ankle Surgery; Visit Provider Orthopaedic Surgery Foot and Ankle Surgery
DX: M19.071 Primary osteoarthritis, right ankle and foot (principal); M79.671 Pain in right foot; M79.89 Other specified soft tissue disorders
CPT/HCPCS: 73700